=== PATIENT | female | born 1955 | race American Indian/Alaskan Native ===

== ENCOUNTER 2016-11-02 17:05 | Emergency (ER) | payer MEDICARE ==
[2016-11-02 18:28] LABS: Hematocrit 39.3 % (30.3-42.9); Hemoglobin 12.9 gm/dl (10.1-14.3); Mean Corpuscular HGB Conc 33 % (30-34); Mean Corpuscular Hemoglobin 29 pg (28-32); Mean Corpuscular Volume 88 fl (79-97); Platelet Count 272 K/mm3 (140-440); Red Blood Count 4.49 M/mm3 (3.65-5.03); Red Cell Distribution Width 13.7 % (13.2-15.2); White Blood Count 9.7 K/mm3 (4.5-11.0)
[2016-11-02 18:47] LABS: Anion Gap 20 mmol/L; Blood Urea Nitrogen 9 mg/dL (7-17); Calcium 9.4 mg/dL (8.4-10.2); Carbon Dioxide 24 mmol/L (22-30); Chloride 100.5 mmol/L (98-107); Glucose 154 mg/dL (65-100); Potassium 4.2 mmol/L (3.6-5.0); Sodium 140 mmol/L (137-145)
[2016-11-02 20:29] LABS: Bilirubin,Urine NEG (Negative); Blood,Urine NEG (Negative); Ketones,Urine NEG (Negative); Leukocyte Esterase,Urine NEG (Negative); Mucus,Urine FEW /HPF; Nitrite,Urine NEG (Negative); Protein,Urine <15 mg/dL mg/dL (Negative); Urobilinogen,Urine < 2.0 mg/dL (<2.0)
[2016-11-03] MEDS ORDERED: MORPHINE IV ONE (00:02)
[2016-11-03] MEDS ORDERED: ZOFRAN IV ONE (00:02)
--- NOTE | 2016-11-03 00:07 | Emergency Department Report ---
HPI - General Chief Complaint: Pain General Time Seen by Provider: 11/02/16 23:49 - HPI HPI: Murillo 22 The patient is a 61-year-old female presenting with a chief complaint of abdominal pain and shoulder pain. The patient states last night she developed pain in her lower back and right shoulder. Patient denies any history of trauma or fever. Patient states today she developed pain in the left lower quadrant of her abdomen however the pain is been "moving around." Patient denies nausea/vomiting. The patient states she has not contacted her primary physician or liver transplant physician. The patient currently gives her pain a score of 8/10 Location: [see above] Duration: [see above] Quality: Pain Severity: 8/10 Modifying factors: Movement increases pain in the right shoulder Context: [see above] Mode of transportation: [not driving] ED Past Medical Hx - Past Medical History Hx Hypertension: Yes Additional medical history: liver transplant 12/2012 hep c. hypothyroidism - Surgical History Past Surgical History?: No Additional Surgical History: liver transplant 12/2012 - Family History Family history: no significant - Social History Smoking Status: Never Smoker Substance Use Type: None - Medications Home Medications: Home Medications Medication Instructions Recorded Confirmed Last Taken Type Multivitamin [Multi-Vitamin Daily] 1 tab PO DAILY 07/21/13 07/21/13 07/21/13 09: 00 History 1 tab Tacrolimus [Prograf] 2 mg PO BID 07/21/13 07/21/13 Unknown History Sulfamethoxazole/Trimethoprim 1 each PO BID #20 tablet 04/11/16 Unknown Rx [Bactrim DS TAB] amLODIPine [Norvasc] 10 mg PO DAILY #30 tablet 04/11/16 Unknown Rx traMADol [Ultram] 50 mg PO Q6HR PRN #20 tablet 04/11/16 Unknown Rx oxyCODONE [Roxicodone TAB] 5 mg PO Q6HR PRN #14 tablet 11/03/16 Unknown Rx ED Review of Systems ROS: Stated complaint: APARICIO/SHOULDRE PAIN/BODY PAIN Other details as noted in HPI Comment: All other systems reviewed and negative Constitutional: denies: chills, fever Eyes: denies: eye pain, eye discharge, vision change ENT: denies: ear pain, throat pain Respiratory: denies: cough, shortness of breath, wheezing Cardiovascular: denies: chest pain, palpitations Endocrine: no symptoms reported Gastrointestinal: abdominal pain. denies: nausea, vomiting Genitourinary: denies: urgency, dysuria, discharge Musculoskeletal: arthralgia, myalgia Skin: denies: rash, lesions Neurological: denies: headache, weakness, paresthesias Psychiatric: denies: anxiety, depression Hematological/Lymphatic: denies: easy bleeding, easy bruising Physical Exam - Physical Exam Vital Signs: Vital Signs 11/02/16 17:57 Temperature 98.8 F Pulse Rate 101 H Respiratory 18 Rate Blood Pressure 149/89 O2 Sat by Pulse 100 Oximetry Physical Exam: GENERAL: The patient is well-developed well-nourished female lying on stretcher not appear to be in acute distress. [] HEENT: Normocephalic. Atraumatic. Extraocular motions are intact. Patient has moist mucous membranes. Sclera anicteric NECK: Supple. Trachea midline CHEST/LUNGS: Clear to auscultation. There is no respiratory distress noted. HEART/CARDIOVASCULAR: Regular. There is no tachycardia. There is no gallop rub or murmur. 2+ radial pulse on the right ABDOMEN: Abdomen is soft, with mild discomfort to palpation in the epigastric and left upper quadrant. There is no rebound or guarding. Patient has normal bowel sounds. SKIN: There is no rash. There is no diaphoresis. NEURO: The patient is awake, alert, and oriented. The patient is cooperative. The patient has normal speech MUSCULOSKELETAL: There is limited range of motion of the right shoulder secondary to pain. There are no obvious deformities. There is no tenderness to palpation. ED Course Vital Signs 11/02/16 17:57 Temperature 98.8 F Pulse Rate 101 H Respiratory 18 Rate Blood Pressure 149/89 O2 Sat by Pulse 100 Oximetry ED Medical Decision Making - Lab Data Result diagrams: 11/02/16 18:18 11/02/16 18:18 Laboratory Tests 11/02/16 11/02/16 11/02/16 18:18 18:18 18:18 WBC 9.7 RBC 4.49 Hgb 12.9 Hct 39.3 MCV 88 MCH 29 MCHC 33 RDW 13.7 Plt Count 272 Sodium 140 Potassium 4.2 Chloride 100.5 Carbon Dioxide 24 Anion Gap 20 BUN 9 Creatinine 0.9 Estimated GFR > 60 BUN/Creatinine Ratio 10.00 Glucose 154 H Calcium 9.4 Total Bilirubin 0.3 Direct Bilirubin < 0.2 Indirect Bilirubin 0.1 AST 14 ALT 13 Alkaline Phosphatase 92 Total Protein 7.7 Albumin 4.2 Albumin/Globulin Ratio 1.2 Urine Color Urine Turbidity Urine pH Ur Specific [place] Urine Protein Urine Glucose (UA) Urine Ketones Urine Blood Urine Nitrite Urine Bilirubin Urine Urobilinogen Ur Leukocyte Esterase Urine WBC (Auto) Urine RBC (Auto) Urine Mucus 11/02/16 20:05 WBC RBC Hgb Hct MCV MCH MCHC RDW Plt Count Sodium Potassium Chloride Carbon Dioxide Anion Gap BUN Creatinine Estimated GFR BUN/Creatinine Ratio Glucose Calcium Total Bilirubin Direct Bilirubin Indirect Bilirubin AST ALT Alkaline Phosphatase Total Protein Albumin Albumin/Globulin Ratio Urine Color Yellow Urine Turbidity Clear Urine pH 6.0 Ur Specific [place] 1.012 Urine Protein <15 mg/dl Urine Glucose (UA) Neg Urine Ketones Neg Urine Blood Neg Urine Nitrite Neg Urine Bilirubin Neg Urine Urobilinogen < 2.0 Ur Leukocyte Esterase Neg Urine WBC (Auto) 1.0 Urine RBC (Auto) 2.0 Urine Mucus Few - Radiology Data Radiology results: report reviewed (CT abdomen and pelvis), image reviewed ( shoulder x-ray, CT abdomen and pelvis) interpreted by me: Right shoulder x-ray-no acute fracture or dislocation. CT abdomen and pelvis (read by radiologist)-findings compatible with fatty infiltration of the liver. Postsurgical changes. - Differential Diagnosis rotator cuff injury, arthritis, transplant rejection, Critical care attestation.: If time is entered above; I have spent that time in minutes in the direct care of this critically ill patient, excluding procedure time. ED Disposition Clinical Impression: Acute pain of right shoulder, Abdominal pain Disposition: DISCHARGED TO HOME OR SELFCARE Is pt being admited?: No Does the pt Need Aspirin: No Condition: Stable Instructions: Rotator Cuff Injury (ED) Additional Instructions: Return to the emergency department immediately should you develop worsening symptoms, fever, inability to tolerate food or liquid or any other concerns. Prescriptions: oxyCODONE [Roxicodone TAB] 5 mg PO Q6HR PRN #14 tablet PRN Reason: Pain Referrals: Jameson OLIVA [Other] - 3-[address] Gonzales, your transplant surgeon [Other] - ELENO SEYMOUR MD [Staff Physician] - 2-3 Days (Dr. Green is an orthopedic surgeon. Please follow up with him for further evaluation of your shoulder pain ) Time of Disposition: 04:31
[2016-11-03 00:15] LABS: Alanine Aminotransferase 13 units/L (7-56); Albumin 4.2 g/dL (3.9-5); Albumin/Globulin Ratio 1.2 %; Alkaline Phosphatase 92 units/L (35-129); Bilirubin,Direct < 0.2 mg/dL (0-0.2); Bilirubin,Indirect 0.1 mg/dL; Bilirubin,Total 0.3 mg/dL (0.1-1.2); Total Protein 7.7 g/dL (6.3-8.2)
--- NOTE | 2016-11-03 03:50 | Cat Scan Report ---
FINAL REPORT EXAM: CT ABDOMEN PELVIS W CON HISTORY: epigastric abdominal pain, history of liver transp TECHNIQUE: Spiral CT scanning of the abdomen and pelvis after the uneventful administration of IV contrast. Multiplanar reformations. 100 mL Omnipaque IV. PRIORS: None. FINDINGS: Abdomen: Visualized lung bases show mild atelectasis, postinflammatory change or scarring bilaterally. Gallbladder surgically absent with biliary duct prominence probably postsurgical. Liver shows diffusely decreased attenuation without focal abnormality. Spleen without significant abnormality. Pancreas without significant abnormality. Kidneys without significant abnormality. Adrenal glands without significant abnormality. Pelvis: Bowel grossly unremarkable. Appendix within normal limits. No significant free peritoneal fluid or apparent adenopathy. Abdominal aorta non-aneurysmal. Uterus surgically absent. IMPRESSION: 1. Findings compatible with fatty infiltration in the liver. 2. Postsurgical changes.
[2016-11-03 05:12] VITALS: BP 136/86
--- NOTE | 2016-11-03 07:13 | XRay Report ---
RIGHT SHOULDER: History: Right shoulder pain. Routine views demonstrate normal bony and soft tissue structures with normal joint alignment of the shoulder. IMPRESSION: Normal study.
== END 2016-11-03 05:12 | disposition home or self-care (01) ==
LOC: ED 17:05
DX: R10.32 Left lower quadrant pain (principal); M25.511 Pain in right shoulder; I10 Essential (primary) hypertension; E03.9 Hypothyroidism, unspecified; Z86.19 Personal history of other infectious and parasitic diseases
CPT/HCPCS: 29105; 36415; 73030; 74177; 80048; 80074; 81001; 85027; 96374; 96375; 99284; J2270; J2405; Q9967

== ENCOUNTER 2018-02-01 13:50 | Outpatient (CLI) | payer MEDICARE | END 2018-02-01 13:51 | disposition home or self-care (01) | LOC: LABHHL 13:50 → LAB 13:50 | PROVIDERS: ATTEND Internal Medicine | DX: E11.9 Type 2 diabetes mellitus without complications (principal); I10 Essential (primary) hypertension | CPT/HCPCS: 36415; 83036 ==

== ENCOUNTER 2018-05-10 21:44 | Emergency (ER) | payer MEDICARE ==
[2018-05-10 22:21] VITALS: BP 157/78
[2018-05-11] MEDS ORDERED: XYLOCAINE 1% MPF 5 mL INFILTRATI ONE (03:34)
[2018-05-11] MEDS ORDERED: DIFLUCAN PO ONE (03:34)
[2018-05-11] MEDS ORDERED: ROCEPHIN IM ONE (03:34)
--- NOTE | 2018-05-11 04:33 | Emergency Department Report ---
ED Female HPI - General Chief complaint: Urogenital-Female Stated complaint: UTI Time Seen by Provider: 05/11/18 03:14 Source: patient Mode of arrival: Ambulatory Limitations: No Limitations - History of Present Illness Initial comments: Patient 63-year-old -Malagasy female treated for UTI last week With Bactrim by mouth states symptoms improved for the first 2 days and then regressed to Dorian sign dysuria frequency urgency noted yeast infection and BV patient is not by her same partner for last 30 years advised no concern for STD as this is a recurring problem for her patient allergic to Cipro and Bactrim has been hit or miss however patient has not had Macrobid discussed possibility of same pending UA result patient denies fever chills no abdominal pain no nausea vomiting no hematuria no flow problem Complaint: vaginal discharge, dysuria Onset/Timin -: week(s) Severity: moderate Severity scale (0 -10): 4 Quality: other (itching burning ) Consistency: intermittent Improves with: none Worsens with: urination, bathing Are you Now?: No Associated Symptoms: vaginal discharge, dysuria, rash. denies: abdominal pain, nausea/vomiting, fever/chills, headaches, loss of appetite, hematuria, seizure, shortness of breath, syncope, weakness - Related Data Sexually active: Yes Home Medications Medication Instructions Recorded Confirmed Last Taken Multivitamin [Multi-Vitamin Daily] 1 tab PO DAILY 07/21/13 07/21/13 07/21/13 09: 00 1 tab Tacrolimus [Prograf] 2 mg PO BID 07/21/13 07/21/13 Unknown Previous Rx's Medication Instructions Recorded Last Taken Type Sulfamethoxazole/Trimethoprim 1 each PO BID #20 tablet 04/11/16 Unknown Rx [Bactrim DS TAB] amLODIPine [Norvasc] 10 mg PO DAILY #30 tablet 04/11/16 Unknown Rx traMADol [Ultram] 50 mg PO Q6HR PRN #20 tablet 04/11/16 Unknown Rx oxyCODONE [Roxicodone TAB] 5 mg PO Q6HR PRN #14 tablet 11/03/16 Unknown Rx metroNIDAZOLE [Flagyl] 500 mg PO BID #20 tab 05/11/18 Unknown Rx Allergies Allergy/AdvReac Type Severity Reaction Status Date / Time ciprofloxacin [From Cipro] Allergy Swelling Verified 07/21/13 13:19 ciprofloxacin HCl Allergy Swelling Verified 07/21/13 13:19 [From Cipro] ED Review of Systems ROS: Stated complaint: UTI Other details as noted in HPI Constitutional: denies: chills, fever Eyes: denies: eye pain, eye discharge, vision change ENT: denies: ear pain, throat pain Respiratory: denies: cough, shortness of breath, wheezing Cardiovascular: denies: chest pain, palpitations Endocrine: no symptoms reported Gastrointestinal: denies: abdominal pain, nausea, diarrhea Genitourinary: urgency, dysuria, frequency, discharge. denies: hematuria, abnormal menses, dyspareunia Musculoskeletal: denies: back pain, joint swelling, arthralgia Skin: denies: rash, lesions Neurological: denies: headache, weakness, paresthesias Psychiatric: denies: anxiety, depression Hematological/Lymphatic: as per HPI ED Past Medical Hx - Past Medical History Hx Hypertension: Yes Additional medical history: liver transplant 12/2012 hep c. hypothyroidism - Surgical History Additional Surgical History: liver transplant 12/2012 - Social History Smoking Status: Never Smoker Substance Use Type: None - Medications Home Medications: Home Medications Medication Instructions Recorded Confirmed Last Taken Type Multivitamin [Multi-Vitamin Daily] 1 tab PO DAILY 07/21/13 07/21/13 07/21/13 09: 00 History 1 tab Tacrolimus [Prograf] 2 mg PO BID 07/21/13 07/21/13 Unknown History Sulfamethoxazole/Trimethoprim 1 each PO BID #20 tablet 04/11/16 Unknown Rx [Bactrim DS TAB] amLODIPine [Norvasc] 10 mg PO DAILY #30 tablet 04/11/16 Unknown Rx traMADol [Ultram] 50 mg PO Q6HR PRN #20 tablet 04/11/16 Unknown Rx oxyCODONE [Roxicodone TAB] 5 mg PO Q6HR PRN #14 tablet 11/03/16 Unknown Rx metroNIDAZOLE [Flagyl] 500 mg PO BID #20 tab 05/11/18 Unknown Rx ED Physical Exam - General Limitations: No Limitations General appearance: alert, in no apparent distress - Head Head exam: Present: atraumatic, normocephalic - Eye Eye exam: Present: normal appearance - ENT ENT exam: Present: mucous membranes moist - Neck Neck exam: Present: normal inspection - Respiratory Respiratory exam: Present: normal lung sounds bilaterally. Absent: respiratory distress - Cardiovascular Cardiovascular Exam: Present: regular rate, normal rhythm. Absent: systolic murmur, diastolic murmur, rubs, gallop - GI/Abdominal GI/Abdominal exam: Present: soft, normal bowel sounds. Absent: tenderness, bruit, hernia - Rectal Rectal exam: Present: deferred - External exam: Present: other (deferred per patient ) - Extremities Exam Extremities exam: Present: normal inspection - Back Exam Back exam: Present: normal inspection, full ROM. Absent: tenderness, CVA tenderness (R), CVA tenderness (L), rash noted - Neurological Exam Neurological exam: Present: alert, oriented X3, CN II-XII intact, normal gait - Psychiatric Psychiatric exam: Present: normal affect, normal mood - Skin Skin exam: Present: warm, dry, intact, normal color. Absent: rash ED Course Vital Signs 05/10/18 22:17 Temperature 98.3 F Pulse Rate 95 H Respiratory 14 Rate Blood Pressure 157/78 O2 Sat by Pulse 98 Oximetry ED Medical Decision Making - Medical Decision Making Noted UA leuk trase moderate WBCs and 174 given failed Bactrim Cipro and Macrobid with treatment Rocephin 1 g IM Diflucan by mouth DC to home Flagyl patient will follow with SERVICE WRITER ADVISOR in 2-3 days as a recurrent problem for her for the past 2 years has no fever no chills no nausea vomiting no back pain or hematuria no flow problems patient verbalizes agreement and understanding of same DC to home in stable condition at this time Critical care attestation.: If time is entered above; I have spent that time in minutes in the direct care of this critically ill patient, excluding procedure time. ED Disposition Clinical Impression: Suzie vaginitis UTI (urinary tract infection) Qualifiers: Urinary tract infection type: acute cystitis Hematuria presence: without hematuria Qualified Code(s): N30.00 - Acute cystitis without hematuria Vaginitis Qualifiers: Chronicity: acute Qualified Code(s): N76.0 - Acute vaginitis Disposition: DC-01 TO HOME OR SELFCARE Is pt being admited?: No Does the pt Need Aspirin: No Condition: Good Instructions: Urinary Tract Infection in Women (ED), Vaginitis (ED) Prescriptions: metroNIDAZOLE [Flagyl] 500 mg PO BID #20 tab Referrals: PRIMARY CARE,MD [Primary Care Provider] - 3-5 Days Forms: Work/School Release Form(ED) Time of Disposition: 04:46
== END 2018-05-11 04:50 | disposition home or self-care (01) ==
LOC: ED 21:44
DX: N30.00 Acute cystitis without hematuria (principal); B37.3 Candidiasis of vulva and vagina; I10 Essential (primary) hypertension; E03.9 Hypothyroidism, unspecified; Z88.1 Allergy status to other antibiotic agents
CPT/HCPCS: 96372; 99282; J0696

== ENCOUNTER 2018-12-03 16:07 | Emergency (ER) | payer MEDICARE ==
[2018-12-03 16:16] VITALS: BP 132/67
[2018-12-03] MEDS ORDERED: PEPCID PO ONE (16:17)
[2018-12-03] MEDS ORDERED: BANOPHEN PO ONE (16:17)
--- NOTE | 2018-12-03 16:17 | Emergency Department Report ---
Chief Complaint: Skin/Abscess/Foreign Body Stated Complaint: R SIDE FACE SWOLLEN Time Seen by Provider: 12/03/18 16:11 - HPI History of Present Illness: Pt c/o right sided facial swelling that began this morning when she woke up itching/burning no dental pain pt does wear dentures no fever no new detergents, soaps, new lotions, new foods does not remember any insect bite never happened before no SOB, no angioedema VSS MSE screening note: Focused history and physical exam performed. ED Disposition for MSE Condition: Stable
[2018-12-03] MEDS ORDERED: DECADRON PO ONE (16:18)
--- NOTE | 2018-12-04 00:45 | Emergency Department Report ---
ED General Adult HPI - General Chief complaint: Skin/Abscess/Foreign Body Stated complaint: R SIDE FACE SWOLLEN Time Seen by Provider: 12/03/18 16:11 Source: patient Mode of arrival: Ambulatory Limitations: No Limitations - History of Present Illness Severity scale (0 -10): 3 - Related Data Home Medications Medication Instructions Recorded Confirmed Last Taken Multivitamin [Multi-Vitamin Daily] 1 tab PO DAILY 07/21/13 07/21/13 07/21/13 09:00 1 tab Tacrolimus [Prograf] 2 mg PO BID 07/21/13 07/21/13 Unknown Previous Rx's Medication Instructions Recorded Last Taken Type Sulfamethoxazole/Trimethoprim 1 each PO BID #20 tablet 04/11/16 Unknown Rx [Bactrim DS TAB] amLODIPine [Norvasc] 10 mg PO DAILY #30 tablet 04/11/16 Unknown Rx traMADol [Ultram] 50 mg PO Q6HR PRN #20 tablet 04/11/16 Unknown Rx oxyCODONE [Roxicodone TAB] 5 mg PO Q6HR PRN #14 tablet 11/03/16 Unknown Rx metroNIDAZOLE [Flagyl] 500 mg PO BID #20 tab 05/11/18 Unknown Rx Sulfamethoxazole/Trimethoprim 1 each PO BID #20 tablet 12/03/18 Unknown Rx [Bactrim DS TAB] cephALEXin [Keflex] 500 mg PO Q6HR #40 capsule 12/03/18 Unknown Rx predniSONE [Deltasone] 20 mg PO BID #14 tab 12/03/18 Unknown Rx Allergies Allergy/AdvReac Type Severity Reaction Status Date / Time ciprofloxacin [From Cipro] Allergy Swelling Verified 12/03/18 16:08 ciprofloxacin HCl Allergy Swelling Verified 12/03/18 16:08 [From Cipro] ED Review of Systems ROS: Stated complaint: R SIDE FACE SWOLLEN Other details as noted in HPI ED Past Medical Hx - Past Medical History Hx Hypertension: Yes Hx Diabetes: Yes Additional medical history: liver transplant 12/2012 hep c. hypothyroidism - Surgical History Additional Surgical History: liver transplant 12/2012 - Social History Smoking Status: Former Smoker Substance Use Type: Alcohol, Prescribed - Medications Home Medications: Home Medications Medication Instructions Recorded Confirmed Last Taken Type Multivitamin [Multi-Vitamin Daily] 1 tab PO DAILY 07/21/13 07/21/13 07/21/13 09:00 History 1 tab Tacrolimus [Prograf] 2 mg PO BID 07/21/13 07/21/13 Unknown History Sulfamethoxazole/Trimethoprim 1 each PO BID #20 tablet 04/11/16 Unknown Rx [Bactrim DS TAB] amLODIPine [Norvasc] 10 mg PO DAILY #30 tablet 04/11/16 Unknown Rx traMADol [Ultram] 50 mg PO Q6HR PRN #20 tablet 04/11/16 Unknown Rx oxyCODONE [Roxicodone TAB] 5 mg PO Q6HR PRN #14 tablet 11/03/16 Unknown Rx metroNIDAZOLE [Flagyl] 500 mg PO BID #20 tab 05/11/18 Unknown Rx Sulfamethoxazole/Trimethoprim 1 each PO BID #20 tablet 12/03/18 Unknown Rx [Bactrim DS TAB] cephALEXin [Keflex] 500 mg PO Q6HR #40 capsule 12/03/18 Unknown Rx predniSONE [Deltasone] 20 mg PO BID #14 tab 12/03/18 Unknown Rx ED Physical Exam - General Limitations: No Limitations ED Course Vital Signs 12/03/18 16:13 Temperature 98.4 F Pulse Rate 91 H Respiratory 18 Rate Blood Pressure 132/67 O2 Sat by Pulse 98 Oximetry Critical care attestation.: If time is entered above; I have spent that time in minutes in the direct care of this critically ill patient, excluding procedure time. ED Disposition Disposition: DC-01 TO HOME OR SELFCARE Condition: Stable Instructions: Cellulitis (ED) Prescriptions: Sulfamethoxazole/Trimethoprim [Bactrim DS TAB] 1 each PO BID #20 tablet predniSONE [Deltasone] 20 mg PO BID #14 tab cephALEXin [Keflex] 500 mg PO Q6HR #40 capsule Referrals: MIREILLE QUIROGA MD [Primary Care Provider] - 3-5 Days
== END 2018-12-03 20:36 | disposition home or self-care (01) ==
LOC: ED 16:07
DX: R22.0 Localized swelling, mass and lump, head (principal); L29.9 Pruritus, unspecified; I10 Essential (primary) hypertension; E11.9 Type 2 diabetes mellitus without complications; E03.9 Hypothyroidism, unspecified; Z87.891 Personal history of nicotine dependence; Z86.19 Personal history of other infectious and parasitic diseases; Z88.1 Allergy status to other antibiotic agents
CPT/HCPCS: 99282; J8540; Q0163

== ENCOUNTER 2019-07-19 19:27 | Emergency (ER) | payer MEDICARE ==
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
[2019-07-19 23:24] VITALS: BP 160/84
== END 2019-07-19 23:10 | disposition home or self-care (01) ==
LOC: ED 19:27
DX: S16.1XXA Strain of muscle, fascia and tendon at neck level, initial encounter (principal); I10 Essential (primary) hypertension; E11.9 Type 2 diabetes mellitus without complications; E03.9 Hypothyroidism, unspecified; Z94.4 Liver transplant status; Z79.899 Other long term (current) drug therapy; Z88.8 Allergy status to other drugs, medicaments and biological substances; V49.49XA Driver injured in collision with other motor vehicles in traffic accident, initial encounter; Y93.89 Activity, other specified; Y92.410 Unspecified street and highway as the place of occurrence of the external cause; Y99.8 Other external cause status
CPT/HCPCS: 70450; 72125

== ENCOUNTER 2020-03-26 13:53 | Emergency (ER) | payer MEDICARE ==
[2020-03-26 15:02] VITALS: BP 142/70
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
== END 2020-03-26 17:58 | disposition home or self-care (01) ==
LOC: ED 13:53
DX: M54.2 Cervicalgia (principal); M54.5 Low back pain; I10 Essential (primary) hypertension; E11.9 Type 2 diabetes mellitus without complications; E03.9 Hypothyroidism, unspecified; Z98.890 Other specified postprocedural states; Z79.1 Long term (current) use of non-steroidal anti-inflammatories (NSAID); Z79.899 Other long term (current) drug therapy; Z88.1 Allergy status to other antibiotic agents; V49.69XA Unspecified car occupant injured in collision with other motor vehicles in traffic accident, initial encounter; Y93.89 Activity, other specified; Y92.488 Other paved roadways as the place of occurrence of the external cause; Y99.8 Other external cause status
CPT/HCPCS: 72040; 72100; 99283

== ENCOUNTER 2020-09-29 15:30 | Emergency (ER) | payer MEDICARE ==
[2020-09-29 15:46] VITALS: BP 146/63
[2020-09-29] MEDS ORDERED: dexAMETHasone 4 MG/ML VIAL IM ONE (16:26)
[2020-09-29] MEDS ORDERED: KETOROLAC 60 MG/2 ML INJ IM ONE (16:26)
[2020-09-29] MEDS ORDERED: CYCLOBENZAPRINE 10 MG TAB PO ONE (16:26)
--- NOTE | 2020-09-29 17:29 | Emergency Department Report ---
ED Neck Pain/Injury HPI - General Chief Complaint: Neck Pain/Injury Stated Complaint: NECK PAIN Time Seen by Provider: 09/29/20 15:51 Mode of arrival: Ambulatory Limitations: No Limitations - History of Present Illness Initial Comments: Patient is a 65-year-old female presents emergency room complaints of right- sided neck pain that began yesterday. She denies any fall or injury. She states that she has had this before and has a history of arthritis. She denies any numbness, weakness, vision changes, headache, fever, nausea, vomiting, diarrhea. She has a past medical history of liver transplant in 2011, DM, HTN. She has an allergy to Cipro. - Related Data Home Medications Medication Instructions Recorded Confirmed Last Taken Multivitamin [Multi-Vitamin Daily] 1 tab PO DAILY 07/21/13 07/21/13 07/21/13 09:00 1 tab Tacrolimus [Prograf] 2 mg PO BID 07/21/13 07/21/13 Unknown Previous Rx's Medication Instructions Recorded Last Taken Type Sulfamethoxazole/Trimethoprim 1 each PO BID #20 tablet 04/11/16 Unknown Rx [Bactrim DS TAB] amLODIPine 10 mg PO DAILY #30 tablet 04/11/16 Unknown Rx traMADoL [Ultram] 50 mg PO Q6HR PRN #20 tablet 04/11/16 Unknown Rx oxyCODONE [roxiCODONE] 5 mg PO Q6HR PRN #14 tablet 11/03/16 Unknown Rx metroNIDAZOLE [Flagyl] 500 mg PO BID #20 tab 05/11/18 Unknown Rx Sulfamethoxazole/Trimethoprim 1 each PO BID #20 tablet 12/03/18 Unknown Rx [Bactrim DS TAB] cephALEXin [Keflex] 500 mg PO Q6HR #40 capsule 12/03/18 Unknown Rx predniSONE [Deltasone] 20 mg PO BID #14 tab 12/03/18 Unknown Rx Lisinopril [Zestril] 40 mg PO DAILY #30 tablet 12/10/18 Unknown Rx diphenhydrAMINE [Benadryl CAP] 25 mg PO Q8HR PRN #20 capsule 12/10/18 Unknown Rx Cyclobenzaprine [Flexeril] 10 mg PO QHS PRN #20 tablet 07/19/19 Unknown Rx Ibuprofen [Motrin 800 MG tab] 800 mg PO Q8HR PRN #30 tablet 07/19/19 Unknown Rx Naproxen [EC-Naprosyn] 375 mg PO BID PRN #14 tablet. 03/26/20 Unknown Rx methOCARBAMOL [Robaxin TAB] 500 mg PO BID PRN #12 tablet 03/26/20 Unknown Rx Menthol/Camphor [Crandall [place] 1 applicatio TP BID #18 oint...g. 09/29/20 Unknown R x Ointment] Naproxen [EC-Naprosyn] 375 mg PO BID PRN #14 tablet. 09/29/20 Unknown Rx methOCARBAMOL [Robaxin TAB] 500 mg PO BID PRN #14 tab 09/29/20 Unknown Rx Allergies Allergy/AdvReac Type Severity Reaction Status Date / Time ciprofloxacin [From Cipro] Allergy Swelling Verified 09/29/20 15:41 ciprofloxacin HCl Allergy Swelling Verified 09/29/20 15:41 [From Cipro] ED Review of Systems ROS: Stated complaint: NECK PAIN Other details as noted in HPI Comment: All other systems reviewed and negative ED Past Medical Hx - Past Medical History Hx Hypertension: Yes Hx Diabetes: Yes Additional medical history: liver transplant 12/2012 hep c. hypothyroidism, PUD - Surgical History Additional Surgical History: liver transplant 12/2012 - Social History Smoking Status: Never Smoker Substance Use Type: None - Medications Home Medications: Home Medications Medication Instructions Recorded Confirmed Last Taken Type Multivitamin [Multi-Vitamin Daily] 1 tab PO DAILY 07/21/13 07/21/13 07/21/13 09:00 History 1 tab Tacrolimus [Prograf] 2 mg PO BID 07/21/13 07/21/13 Unknown History Sulfamethoxazole/Trimethoprim 1 each PO BID #20 tablet 04/11/16 Unknown Rx [Bactrim DS TAB] amLODIPine 10 mg PO DAILY #30 tablet 04/11/16 Unknown Rx traMADoL [Ultram] 50 mg PO Q6HR PRN #20 tablet 04/11/16 Unknown Rx oxyCODONE [roxiCODONE] 5 mg PO Q6HR PRN #14 tablet 11/03/16 Unknown Rx metroNIDAZOLE [Flagyl] 500 mg PO BID #20 tab 05/11/18 Unknown Rx Sulfamethoxazole/Trimethoprim 1 each PO BID #20 tablet 12/03/18 Unknown Rx [Bactrim DS TAB] cephALEXin [Keflex] 500 mg PO Q6HR #40 capsule 12/03/18 Unknown Rx predniSONE [Deltasone] 20 mg PO BID #14 tab 12/03/18 Unknown Rx Lisinopril [Zestril] 40 mg PO DAILY #30 tablet 12/10/18 Unknown Rx diphenhydrAMINE [Benadryl CAP] 25 mg PO Q8HR PRN #20 capsule 12/10/18 Unknown Rx Cyclobenzaprine [Flexeril] 10 mg PO QHS PRN #20 tablet 07/19/19 Unknown Rx Ibuprofen [Motrin 800 MG tab] 800 mg PO Q8HR PRN #30 tablet 07/19/19 Unknown Rx Naproxen [EC-Naprosyn] 375 mg PO BID PRN #14 tablet. 03/26/20 Unknown Rx methOCARBAMOL [Robaxin TAB] 500 mg PO BID PRN #12 tablet 03/26/20 Unknown Rx Menthol/Camphor [Crandall [place] 1 applicatio TP BID #18 oint...g. 09/29/20 Unknown Rx Ointment] Naproxen [EC-Naprosyn] 375 mg PO BID PRN #14 tablet. 09/29/20 Unknown Rx methOCARBAMOL [Robaxin TAB] 500 mg PO BID PRN #14 tab 09/29/20 Unknown Rx ED Physical Exam - General Limitations: No Limitations General appearance: alert, in no apparent distress - Head Head exam: Present: atraumatic, normocephalic - Eye Eye exam: Present: normal appearance - ENT ENT exam: Present: mucous membranes moist - Neck Neck exam: Present: normal inspection, tenderness (right sided C-spine pa raspinal muscular ttp, no midline C-spine ttp, no step offs, no deformities), full ROM, other (no carotid bruit). Absent: meningismus, lymphadenopathy, thyromegaly - Respiratory Respiratory exam: Present: normal lung sounds bilaterally. Absent: respiratory distress, wheezes, rales, rhonchi, stridor, chest wall tenderness, accessory muscle use, decreased breath sounds, prolonged expiratory - Cardiovascular Cardiovascular Exam: Present: regular rate, normal rhythm, normal heart sounds. Absent: systolic murmur, diastolic murmur, rubs, gallop - Back Exam Back exam: Present: normal inspection, full ROM. Absent: paraspinal tenderness, vertebral tenderness - Neurological Exam Neurological exam: Present: alert, oriented X3, CN II-XII intact, normal gait. Absent: motor sensory deficit - Psychiatric Psychiatric exam: Present: normal affect, normal mood - Skin Skin exam: Present: warm, dry, intact ED Course Vital Signs 09/29/20 09/29/20 15:45 17:24 Temperature 98.6 F Pulse Rate 87 Respiratory 18 16 Rate Blood Pressure 146/63 O2 Sat by Pulse 99 Oximetry ED Medical Decision Making - Medical Decision Making Patient is a 65-year-old female presents emergency room complaints of right- sided neck pain that began yesterday. She denies any fall or injury. She states that she has had this before and has a history of arthritis. She denies any numbness, weakness, vision changes, headache, fever, nausea, vomiting, diarrhea. She has a past medical history of liver transplant in 2011, DM, HTN. She has an allergy to Cipro. VSS. on exam:right sided C-spine paraspinal muscular ttp, no midline C-spine ttp, no step offs, no deformities, no carotid bruit, no focal neuro deficit. Patient given medications while in the emergency department and symptoms improved and she was feeling much better and ready to go home. Patient has had no trauma, she has no midline tenderness, no focal neuro deficits, there is no swelling of the neck. Symptoms appear most consistent with torticollis versus cervical strain. Given prescription for naproxen, Robaxin, Crandall balm ointment. Discussed strict return precautions with patient. Advised pt Please use medication as prescribed. Please do not drive or operate machinery while taking muscle max Robaxin. May use ice pack, heating pad, rest, Epsom salt bath. Follow-up with a primary care doctor for reexamination. Return to emergency room immediately for any new or worsening symptoms. Critical care attestation.: If time is entered above; I have spent that time in minutes in the direct care of this critically ill patient, excluding procedure time. ED Disposition Clinical Impression: Neck pain Disposition: -01 TO HOME OR SELFCARE Is pt being admited?: No Does the pt Need Aspirin: No Condition: Stable Instructions: Muscle Strain, [id number], Acute Torticollis, Adult Additional Instructions: Please use medication as prescribed. Please do not drive or operate machinery while taking muscle max Robaxin. May use ice pack, heating pad, rest, Epsom salt bath. Follow-up with a primary care doctor for reexamination. Return to emergency room immediately for any new or worsening symptoms. Prescriptions: Naproxen [EC-Naprosyn] 375 mg PO BID PRN #14 tablet.dr PRN Reason: pain methOCARBAMOL [Robaxin TAB] 500 mg PO BID PRN #14 tab PRN Reason: pain Menthol/Camphor [Crandall [place] Ointment] 1 applicatio TP BID #18 oint...g. Referrals: PRIMARY CARE, [Primary Care Provider] - 2-3 Days Time of Disposition: 17:49 Print Language: WOLOF
== END 2020-09-29 18:14 | disposition home or self-care (01) ==
LOC: ED 15:30
DX: M54.2 Cervicalgia (principal); I10 Essential (primary) hypertension; E11.9 Type 2 diabetes mellitus without complications; Z98.890 Other specified postprocedural states; Z79.1 Long term (current) use of non-steroidal anti-inflammatories (NSAID); Z79.899 Other long term (current) drug therapy; Z88.8 Allergy status to other drugs, medicaments and biological substances
CPT/HCPCS: 96372; 99282; J1100; J1885

== ENCOUNTER 2021-04-25 20:44 | Emergency (ER) | payer MEDICARE | END 2021-04-26 00:50 | disposition short-term general hospital (02) | LOC: ED 20:44 | DX: R53.1 Weakness (principal); Z53.21 Procedure and treatment not carried out due to patient leaving prior to being seen by health care provider ==